=== PATIENT | male | born 1995 | race Caucasian/White ===

== ENCOUNTER 2018-02-09 00:39 | Emergency (ER) | END 2018-02-09 04:14 | disposition home or self-care (01) ==

== ENCOUNTER 2018-12-13 20:38 | Emergency (ER) | payer MEDICAID ==
[~2018-12-13] VITALS: Ht 170.2 cm; Wt 67.0 kg
[~2018-12-13 20:38] MED LIST: IBUP-1542 PO; TRAM50TA2 PO
[2018-12-13 20:45] VITALS: Ht 170.2 cm; Wt 67.0 kg
[2018-12-13] MEDS ORDERED: LORAZEPAM 2 MG INJ IM ONE (23:00)
[2018-12-13] MEDS ORDERED: LORA1TAB PO (23:46)
--- NOTE | 2018-12-13 23:51 | ERD ---
ER Documentation Chief Complaint Chief Complaint CP X 4 DAYS, DENIES SOB/COUGH, HX OF ANXIETY HPI This is a 23-year-old male with chest pain times 4 days. He denies shortness of breath or cough. Is a history of anxiety. His chest pain is worse when he touches it and worse when he gets stressed out. No nausea no vomiting no fevers no chills. Pain is mild to moderate intensity. ROS All systems reviewed and are negative except as per history of present illness. Medications Home Meds Active Scripts Lorazepam* (Lorazepam*) 1 Mg Tablet, 1 MG PO Q8, #10 TAB Prov:EDOUARDMICHELLEDECLAN HigginbothamBernard 12/13/18 Discontinued Reported Medications [none] Unknown Strength No Conflict Check 02/09/18 Discontinued Scripts Tramadol HCl (Tramadol HCl) 50 Mg Tablet, 50 MG PO Q6 PRN for SEVERE PAIN LEVEL 7-10, #20 TAB Prov:ABIMBOLA FRIEND T[employer] WR[employer]PER 02/09/18 Ibuprofen* (Motrin*) 600 Mg Tab, 600 MG PO Q6H PRN for PAIN AND OR ELEVATED TEMP, #30 TAB Prov:ABIMBOLA FRIEND [employer] WRAPPER 02/09/18 Allergies Allergies: Coded Allergies: No Known Allergy (Unverified , 12/13/18) PMhx/Soc History of Surgery: No Anesthesia Reaction: No Hx Neurological Disorder: No Hx Respiratory Disorders: No Hx Cardiac Disorders: No Hx Psychiatric Problems: No Hx Miscellaneous Medical Probl: No Hx Alcohol Use: No Hx Substance Use: No Hx Tobacco Use: No Smoking Status: Never smoker Physical Exam Vitals Vital Signs Date Temp Pulse Resp B/P (MAP) Pulse Ox O2 O2 Flow FiO2 Time Delivery Rate 12/13/18 58 16 127/83 100 Room Air 22:54 (98) 12/13/18 98.1 72 18 137/89 99 20:45 (105) Physical Exam Const: No acute distress Head: Atraumatic Eyes: Normal Conjunctiva ENT: Normal External Ears, Nose and Mouth. Neck: Full range of motion. No meningismus. Resp: Clear to auscultation bilaterally Cardio: Regular rate and rhythm, no murmurs Abd: Soft, non tender, non distended. Normal bowel sounds Skin: No petechiae or rashes Back: No midline or flank tenderness Ext: No cyanosis, or edema Neur: Awake and alert Psych: Normal Mood and Affect Results 24 hrs Current Medications Medications Dose Sig/Elisabeth Start Time Status Last (Trade) Ordered Route PRN Stop Time Admin Dose Reason Admin Lorazepam 1 mg ONCE ONCE 12/13/18 DC 12/13/18 (Ativan) IM 23:00 22:47 12/13/18 23:01 Procedures/MDM EKG: Rate/Rhythm: [Normal Sinus Rhythm] QRS, ST, T-waves: [No changes consistent w/ acute ischemia] Impression: [No evidence of ischemia or arrhythmia] Chest X-ray 1V Interpreted by me: Soft Tissue: No acute abnormalities Bones: No acute abnormalities Mediastinum/Cardiac Silhouette/Lungs: [No acute abnormalities] Patient's thoracic symptoms have stabilized while in the department and are stable for outpatient follow up. Exam and work up not consistent w/ ischemia, arrhythmia, PE or dissection. Symptom allergy resolved with administration of Ativan make Anxiety related chest pain. At this point is clinically stable will be discharged home a short course of benzodiazepines. Departure Diagnosis: Primary Impression: Chest pain Chest pain type: unspecified Qualified Codes: R07.9 - Chest pain, unspecified Condition: Stable Patient Instructions: Chest Pain, Uncertain Cause DECLAN BURNETT Dec 13, 2018 23:51
[2018-12-14 00:15] VITALS: BP 104/70; PULSE 63; RESP 18
== END 2018-12-14 00:15 | disposition home or self-care (01) ==
LOC: E/R 20:38
DX: R07.9 Chest pain, unspecified (principal)
CPT/HCPCS: 71045; 93005; 96372; J2060; Z7502